=== PATIENT | male | born 1935 | race Caucasian/White ===

== ENCOUNTER 2024-05-09 08:54 | Inpatient (IN) | payer MEDICARE ==
[2024-05-09] MEDS ORDERED: Sodium Chloride 0.9% 100 ML IV SCH (09:15)
[2024-05-09] MEDS: Sodium Chloride 0.9% 500 ML IV ONE ×3 (09:24→22:10)
[2024-05-09] MEDS: Pantoprazole 80 MG in Sodium Chloride 0.9% 100 ML IV ONE (09:24)
[2024-05-09] MEDS: Pantoprazole 40 MG Vial IVPUSH ONE (09:24)
[2024-05-09 09:39] LABS: BASOPHILS PERCENT AUTO 0.1 % (0.0-1.0); HEMATOCRIT 16.4 % (42.0-52.0); IMMATURE GRAN ABSOLUTE AUTO 0.11 K/mm3 (0.00-0.05); IMMATURE GRAN PERCENT AUTO 1.4 % (0.0-0.4); LYMPHOCYTES ABSOLUTE AUTO 0.4 K/mm3 (1.0-4.8); LYMPHOCYTES PERCENT AUTO 5.7 % (24.0-44.0); MEAN CORPUSCULAR HEMOGLOBIN 34.7 pg (28.0-32.0); MEAN CORPUSCULAR HGB CONC 31.7 g/dl (32.0-36.0); MEAN CORPUSCULAR VOLUME 109.3 fl (83.0-99.0); MEAN PLATELET VOLUME 12.6 fl (9.4-12.4); MONOCYTES ABSOLUTE AUTO 0.5 K/mm3 (0.0-0.8); MONOCYTES PERCENT AUTO 6.5 % (0.0-8.0); NEUTROPHILS ABSOLUTE AUTO 6.7 K/mm3 (1.8-7.7); NEUTROPHILS PERCENT AUTO 86.3 % (41.0-71.0); PLATELET COUNT,PLT 105 K/mm3 (150-400); WHITE BLOOD CELL COUNT,WBC 7.73 K/mm3 (3.9-11.3)
[2024-05-09 09:57] LABS: INR 1.16; PROTHROMBIN TIME 12.2 SECONDS (9.7-12.0)
[2024-05-09 10:08] LABS: A/G RATIO 0.9 (1-2); ALBUMIN 2.4 g/dl (3.4-5.0); ANION GAP 14.5 (5-15); BILIRUBIN TOTAL 1.1 mg/dL (0.2-1.0); BUN/CREATININE RATIO 23.8 (14-18); CALCIUM 8.1 mg/dL (8.5-10.1); CREATININE 4.2 mg/dL (0.7-1.3); EST CRCL DRUG DOSING (CG) 12.63 mL/min; POTASSIUM,K 4.5 mEq/L (3.5-5.1); PROTEIN TOTAL,TP 5.2 g/dl (6.4-8.2)
[2024-05-09 10:21] LABS: HEMOGLOBIN 5.2 gm/dl (14.0-18.0)
[2024-05-09 10:57] LABS: SLIDE REVIEW ABNORMAL SMEAR
[2024-05-10] MEDS: LORazepam 2 MG/ML SDV IVPUSH ONE (01:59)
[2024-05-10 06:39] LABS: BASOPHILS PERCENT AUTO 0.2 % (0.0-1.0); EOSINOPHILS PERCENT AUTO 0.1 % (0.0-6.0); HEMATOCRIT 16.5 % (42.0-52.0); IMMATURE GRAN ABSOLUTE AUTO 0.15 K/mm3 (0.00-0.05); IMMATURE GRAN PERCENT AUTO 1.3 % (0.0-0.4); LYMPHOCYTES ABSOLUTE AUTO 0.4 K/mm3 (1.0-4.8); LYMPHOCYTES PERCENT AUTO 3.4 % (24.0-44.0); MEAN CORPUSCULAR HEMOGLOBIN 35.3 pg (28.0-32.0); MEAN CORPUSCULAR HGB CONC 32.1 g/dl (32.0-36.0); MEAN PLATELET VOLUME 12.5 fl (9.4-12.4); MONOCYTES ABSOLUTE AUTO 0.6 K/mm3 (0.0-0.8); MONOCYTES PERCENT AUTO 5.2 % (0.0-8.0); NEUTROPHILS ABSOLUTE AUTO 10.3 K/mm3 (1.8-7.7); NEUTROPHILS PERCENT AUTO 89.8 % (41.0-71.0); PLATELET COUNT,PLT 119 K/mm3 (150-400); WHITE BLOOD CELL COUNT,WBC 11.45 K/mm3 (3.9-11.3)
[2024-05-10 06:42] LABS: APPEARANCE,URINE CLOUDY (Clear); BILIRUBIN,URINE NEGATIVE (Negative); COLOR,URINE DARK YELLOW (Yellow); GLUCOSE,URINE NEGATIVE (Negative); KETONES,URINE NEGATIVE (Negative); LEUKOCYTE ESTERASE,URINE 1+ (Negative); NITRITE,URINE NEGATIVE (Negative); OCCULT BLOOD,URINE 2+ (Negative); PROTEIN,URINE 2+ (Negative)
[2024-05-10 06:51] LABS: HEMOGLOBIN 5.3 gm/dl (14.0-18.0)
[2024-05-10] MEDS: LORazepam 2 MG/ML SDV IM ONE (06:58)
[2024-05-10 07:01] LABS: A/G RATIO 0.7 (1-2); ALBUMIN 2.2 g/dl (3.4-5.0); ANION GAP 15.5 (5-15); BILIRUBIN TOTAL 1.3 mg/dL (0.2-1.0); BUN/CREATININE RATIO 23.5 (14-18); CALCIUM 8.3 mg/dL (8.5-10.1); EST CRCL DRUG DOSING (CG) 13.26 mL/min; POTASSIUM,K 4.5 mEq/L (3.5-5.1); PROTEIN TOTAL,TP 5.2 g/dl (6.4-8.2)
[2024-05-10 07:07] LABS: BACTERIA,URINE MODERATE /hpf (FEW); MUCUS,URINE FEW /hpf (FEW); SQUAMOUS EPITHELIAL CELLS,UR 0-5 /hpf (0-5)
[2024-05-10 07:34] LABS: SLIDE REVIEW ABNORMAL SMEAR
[2024-05-10] MEDS: Sodium Chloride 0.9% 10 ML Syringe FLUSH PRN (07:50)
[2024-05-10] MEDS: metroNIDAZOLE/Normal Saline 500 MG in Premix Bag 1 BAG IV ONE (07:50)
[2024-05-10] MEDS: cefTRIAXone 1 GM Vial IVPUSH ONE (07:50)
[2024-05-10] MEDS: Sodium Chloride 0.9% 1,000 ML IV ONE (14:39)
[2024-05-10] MEDS: LORazepam 2 MG/ML SDV IVPUSH PRN ×2 (14:39→21:22)
[2024-05-10] MEDS: Sodium Chloride 0.9% 10 ML Syringe FLUSH ONE (14:49)
[2024-05-10] MEDS: Iopamidol 755 Mg/ML 100 ML Bottle IVPUSH ONE (14:49)
[2024-05-10] MEDS ORDERED: Acetaminophen/Codeine 300-30 MG Tab PO PRN (15:13)
[2024-05-10] MEDS ORDERED: Ondansetron 4 MG/2 ML SDV IVPUSH PRN (15:13)
[2024-05-10] MEDS ORDERED: Acetaminophen 650 MG Supp RECTAL PRN (15:13)
[2024-05-10] MEDS ORDERED: Baclofen 10 MG Tab PO PRN (15:13)
[2024-05-10] MEDS ORDERED: Sennosides/Docusate Sodium 50-8.6 MG Tab PO PRN (15:13)
[2024-05-10] MEDS: Morphine 2 MG/ML SYRINGE IV PRN (15:23)
[2024-05-11] MEDS: Morphine 50 MG in Sodium Chloride 0.9% 45 ML IV SCH (11:38)
[2024-05-12 00:26] VITALS: BP 72/27; PULSE 55
== END 2024-05-12 06:15 | disposition expired | DRG 951 ==
LOC: JD.ED 08:54 → JD.MS 05-10 13:18
PROVIDERS: ADMIT Student in an Organized Health Care Education/Training Program; ATTEND Student in an Organized Health Care Education/Training Program
DX: Z51.5 Encounter for palliative care (principal); K92.2 Gastrointestinal hemorrhage, unspecified; N17.9 Acute kidney failure, unspecified; D64.9 Anemia, unspecified; F03.94 Unspecified dementia, unspecified severity, with anxiety; Z66 Do not resuscitate; D50.0 Iron deficiency anemia secondary to blood loss (chronic); I11.0 Hypertensive heart disease with heart failure; I95.9 Hypotension, unspecified; I50.9 Heart failure, unspecified; L89.156 Pressure-induced deep tissue damage of sacral region; L89.159 Pressure ulcer of sacral region, unspecified stage; E03.9 Hypothyroidism, unspecified; Z98.49 Cataract extraction status, unspecified eye; E11.9 Type 2 diabetes mellitus without complications; Z79.899 Other long term (current) drug therapy
CPT/HCPCS: 36415 ×2; 71045; 74176; 80053 ×2; 81001; 83690; 83735; 83880; 84484; 85025 ×2; 85610; 85730; 86850; 86900; 86901; 87086; 87088; 87186; 93005; J0696; J1836; J2060 ×2; J2470 ×2; J7030 ×2; 93010; 99285; J2270; J2272; J3490